=== PATIENT | female | born 1960 | race Caucasian/White ===

== ENCOUNTER 2018-06-15 08:54 | Day surgery (SDC) | payer BC, MEDICAID ==
[~2018-06-15 08:54] MED LIST: Bupivacaine 0.25%/EPINEPHrine 1:200,000 10 ML SDV INJECT ONE; Bupivacaine 0.25%/EPINEPHrine 1:200,000 10 ML SDV ONE; Lactated Ringers 1,000 ML IV SCH; Midazolam 1 MG/ML 2 ML SDV ONE; Propofol 200 MG/20 ML SDV ONE; ceFAZolin 2 GM in Premix Bag 1 BAG IV ONE; fentaNYL 100 MCG/2 ML SDV ONE
[2018-06-15] MEDS ORDERED: Lidocaine 2% 5 ML SDV ONE (08:55)
[2018-06-15] MEDS ORDERED: ceFAZolin/Dextrose,Iso-Osmotic 2 GM/50 ML Duplex Bag IV ONE (08:58)
[2018-06-15] MEDS ORDERED: fentaNYL 100 MCG/2 ML SDV IVPUSH PRN (09:00)
[2018-06-15] MEDS ORDERED: Ketorolac 30 MG/ML SDV ONE ×2 (09:02→10:13)
--- NOTE | 2018-06-15 09:27 | PCM.PREANE ---
Preanesthetic Assessment - Anesthesia/Transfusion/Family Hx Anesthesia History: Prior Anesthesia Without Reaction Other Type of Anesthesia Reaction Comment: pt adopted Family History of Anesthesia Reaction: No Transfusion History: No Prior Transfusion(s) - Review of Systems General: No Symptoms Pulmonary: No Symptoms Cardiovascular: No Symptoms Gastrointestinal: No Symptoms Neurological: No Symptoms Other: Reports: None - Physical Assessment Height: 1.75 m Weight: 102.058 kg Mental Status: Alert & Oriented x3 Airway Class: Mallampati = 2 Dentition: Reports: Normal Dentition ROM/Head Extension: Full Lungs: Clear to Auscultation, Normal Respiratory Effort Cardiovascular: Regular Rate, Regular Rhythm - Allergies Allergies/Adverse Reactions: Allergies Allergy/AdvReac Type Severity Reaction Status Date / Time adhesive Allergy reddness/it Verified 06/09/18 11:28 debi - Anesthesia Plan Pre-Op Medication Ordered: None - Acknowledgements Anesthesia Type Planned: MAC Pt an Appropriate Candidate for the Planned Anesthesia: Yes Alternatives and Risks of Anesthesia Discussed w Pt/Guardian: Yes Pt/Guardian Understands and Agrees with Anesthesia Plan: Yes Additional Comments: appears hypomanic, indicates she will be noncompliant with CPAP use after surgery, and plans on swimming and getting surgical site wet with lester water after surgery. PreAnesthesia Questionnaire HEENT History: Reports: Other (See Below) Other HEENT History: reading glasses, has "only afew teeth" no dentures Cardiovascular History: Reports: High Cholesterol Other Cardiovascular History: peripheral artery disease, varicose veins Respiratory History: Reports: COPD, Sleep Apnea Other Respiratory History: does not use CPAP Gastrointestinal History: Reports: Hepatitis, Other (See Below) Other Gastrointestinal History: hx "viral hepatitis" Genitourinary History: Reports: None PARENT TRAINER History: Reports: Musculoskeletal History: Reports: Fracture Other Musculoskeletal History: hx fx leg, arms and hand Psychiatric History: Reports: ADD, Anxiety, Depression Endocrine/Metabolic History: Reports: Hypothyroidism, Obesity/BMI 30+ Oncologic (Cancer) History: Reports: Basal Cell Carcinoma, Cervix - Past Surgical History Head Surgeries/Procedures: Reports: None HEENT Surgical History: Reports: Tonsillectomy Cardiovascular Surgical History: Reports: Other (See Below) Other Cardiovascular Surgeries/Procedures: varicose vein stripping, GI Surgical History: Reports: Cholecystectomy Female Surgical History: Reports: Section, Cervical Cryotherapy Other Female Surgeries/Procedures: x4, cervical cancer-surgery Other Oncologic Surgeries/Procedures: tumor removed from breast bone - SUBSTANCE USE Smoking Status *Q: Current Every Day Smoker Tobacco Use Within Last Twelve Months: Cigarettes - HOME MEDS Home Medications: Home Meds Albuterol [Ventolin HFA] 2 puff INH Q4H PRN 07/02/15 [History] Methylphenidate [Ritalin] 20 mg PO ASDIRECTED 07/02/15 [History] Fluticasone/Vilanterol [Breo Ellipta 200-25 Mcg INH] 1 inhalation INH DAILY [History] Ipratropium/Albuterol Sulfate [Iprat-Albut 0.5-3(2.5) mg/3 ml] 1 inh NEB ASDIRECTED PRN 06/02/18 [History] Levothyroxine Sodium [Synthroid] 112 mcg PO DAILY 06/02/18 [History] Sertraline HCl 100 mg PO DAILY 06/02/18 [History] atorvaSTATin Calcium [Atorvastatin Calcium] 20 mg PO DAILY 06/02/18 [History] Methylphenidate HCl 10 mg PO BEDTIME 06/09/18 [History] - CURRENT (IN HOUSE) MEDS Current Meds: Current Medications Fentanyl (Sublimaze) 50 mcg IVPUSH SEECOMMENT PRN PRN Reason: Pain (moderate 4-6) Lactated Ringer's (Ringers, Lactated) 1,000 mls @ 125 mls/hr IV ASDIRECTED EZEQUIEL Discontinued Medications Bupivacaine HCl/Epinephrine Bitart (Marcaine 0.25%/Epinephrine 1:200,000) 10 ml INJECT ONETIME ONE Stop: 06/15/18 08:01 Bupivacaine HCl/Epinephrine Bitart (Marcaine 0.25%/Epinephrine 1:200,000) Confirm Administered Dose 10 ml .ROUTE .STK-MED ONE Stop: 06/15/18 08:49 Cefazolin Sodium/Dextrose (Ancef) Confirm Administered Dose 2 gm IV .STK-MED ONE Stop: 06/15/18 08:59 Fentanyl (Sublimaze) Confirm Administered Dose 100 mcg .ROUTE .STK-MED ONE Stop: 06/15/18 08:55 Cefazolin Sodium/Dextrose 2 gm (/ Premix) 50 mls @ 100 mls/hr IV ONETIME ONE Stop: 06/15/18 08:29 Ketorolac Tromethamine (Toradol) Confirm Administered Dose 30 mg .ROUTE .STK- MED ONE Stop: 06/15/18 09:03 Lidocaine (Xylocaine-Mpf 2%) Confirm Administered Dose 5 ml .ROUTE .STK-MED ONE Stop: 06/15/18 08:56 Midazolam HCl (Versed 1 Mg/Ml) Confirm Administered Dose 2 mg .ROUTE .STK-MED ONE Stop: 06/15/18 08:55 Propofol (Diprivan 20 Ml) Confirm Administered Dose 200 mg .ROUTE .STK-MED ONE Stop: 06/15/18 08:17
[2018-06-15] MEDS ORDERED: diphenhydrAMINE 50 MG/ML SDV ONE (10:08)
[2018-06-15] MEDS ORDERED: Ondansetron 4 MG/2 ML SDV ONE (10:13)
--- NOTE | 2018-06-15 11:01 | PCM.POSTAN ---
POST ANESTHESIA ASSESSMENT - MENTAL STATUS Mental Status: Alert, Oriented - RESPIRATORY Respiratory Status: Respiratory Rate WNL, Airway Patent, O2 Saturation Stable - CARDIOVASCULAR CV Status: Pulse Rate WNL, Blood Pressure Stable - GASTROINTESTINAL GI Status: No Symptoms - POST OP HYDRATION Hydration Status: Adequate & Stable
--- NOTE | 2018-06-15 11:15 | PCM48HPAN ---
Post Anesthesia Note - EVALUATION WITHIN 48HRS OF ANESTHETIC Vital Signs in Normal Range: Yes Patient Participated in Evaluation: Yes Respiratory Function Stable: Yes Airway Patent: Yes Cardiovascular Function Stable: Yes Hydration Status Stable: Yes Pain Control Satisfactory: Yes Nausea and Vomiting Control Satisfactory: Yes Mental Status Recovered: Yes Resp Rate: 20
[2018-06-15 12:46] VITALS: BP 109/61
--- NOTE | 2018-06-15 14:21 | PCM.OPNOTE ---
- General Post-Op/Procedure Note Date of Surgery/Procedure: 06/15/18 Operative Procedure(s): excision of left cheek basal cell 5cm total length Pre Op Diagnosis: left cheek basal cell 2cm Post-Op Diagnosis: Same Anesthesia Technique: General LMA, Local Primary Surgeon: Osiris Bridges Actuarial Trainee: Sheridan Weinberg Complications: None Condition: Good Free Text/Narrative:: Intake & Output 06/14/18 06/15/18 06/15/18 23:59 07:59 15:59 Intake Total 1300 Balance 1300
--- NOTE | 2018-06-15 20:27 | OR ---
SURGEON: MORRO TORRES MD DATE OF PROCEDURE: 06/15/2018 PREOPERATIVE DIAGNOSIS: Left cheek basal cell, 2 cm. POSTOPERATIVE DIAGNOSIS: Left cheek basal cell, 2 cm. PROCEDURE: Excision of left cheek basal cell of 5 cm total length with 5 cm intermediate repair. COMPUTER OPERATIONS MANAGER: NIKHIL Wolfe. ANESTHESIA: General LMA with local after conclusion of not tolerating local MAC. INDICATIONS: Ms. Taylor is a 58-year-old female, who has significant difficulties with hyperactivity, but also has a basal cell to the left cheek area. She is quite worked up for getting this excised and declined excision in the clinic and like to proceed in the operating room. Risks and benefits were discussed with her including, but not limited to, bleeding, infection, damage to underlying or overlying structures, possible need for future interventions, possible scarring. PROCEDURE IN DETAIL: After informed consent were obtained and placed on the chart, the patient was brought to the operating theatre and laid in the supine position. After adequate local MAC anesthesia was obtained, then converted to general LMA anesthesia. After the patient did not tolerate this well, the area was prepped and draped and a time-out was completed to confirm side and site. The previously excised basal cell was then excised in elliptical fashion circumferentially around the lesion itself. Total length of excision was 5 cm. Once adequately excised, meticulous hemostasis was obtained and an intermediate closure using deep 5-0 Monocryl stitches and a running 5-0 subcuticular for the skin were used to close this. The patient tolerated this well. The wound was dressed with Mastisol and Steri-Strips. This was sent for pathology. FOLLOWUP INSTRUCTIONS: The patient will see us in 10 to 14 days, sooner if any problems, questions, or concerns. In addition, she had planned to go swimming today at [facility]. We did advise very strongly against this. We would not recommend pools or lakes for the next two weeks. Strict instructions were provided for her for wound cares and keeping this clean. She will call with any issues or concerns prior, otherwise [id number] medications for pain control. HEGGTJEAN / MARILUZ /[id number]
== END 2018-06-15 12:00 | disposition home or self-care (01) ==
LOC: MW.SDS 08:54
PROVIDERS: ATTEND Plastic Surgery
DX: C44.319 Basal cell carcinoma of skin of other parts of face (principal); J44.9 Chronic obstructive pulmonary disease, unspecified; F17.210 Nicotine dependence, cigarettes, uncomplicated; E66.9 Obesity, unspecified; Z68.33 Body mass index [BMI] 33.0-33.9, adult; F41.9 Anxiety disorder, unspecified; F32.9 Major depressive disorder, single episode, unspecified; F90.9 Attention-deficit hyperactivity disorder, unspecified type; E03.9 Hypothyroidism, unspecified; G47.30 Sleep apnea, unspecified; Z79.899 Other long term (current) drug therapy; Z91.048 Other nonmedicinal substance allergy status
CPT/HCPCS: 11646; 12052; 88305; J0690; J1200; J1885; J2250; J2405; J2704; J3010; J3490; J7120; 00300